=== PATIENT | male | born 1955 | race Caucasian/White ===

== ENCOUNTER 2016-08-24 06:42 | Day surgery (SDC) | payer OTHER ==
[2016-08-24 07:10] VITALS: BMI 30.4
[2016-08-24 07:32] VITALS: RESP 16; TEMP 97.8
[2016-08-24] MEDS ORDERED: Propofol 10 mg/ml Inj (20 ML) ONE ×2 (08:00→08:41)
--- NOTE | 2016-08-24 08:15 | CP.SDSHP ---
Same Day Surgery H & P - History Proposed Procedure: colonoscopy Pre-Op Diagnosis: fecal occult blood loss - Previous Medical/Surgical History Cardiac: Other (hyperlipidemia) Endocrine/Metabolic: Diabetes, Obesity - Allergies Allergies: Allergies No Known Allergies Allergy (Verified 08/24/16 07:09) - Physical Exam Vital Signs: Vital Signs 08/24/16 07:17 Temperature 97.8 F Pulse Rate 80 Respiratory 16 Rate Blood Pressure 128/62 O2 Sat by Pulse 97 Oximetry Mental Status: Alert & Oriented x3 Neuro: WNL Heart: WNL Lungs: WNL GI: WNL - Impression Impression: fecal occult blood loss Pt. Evaluated Today:Candidate for Anesthesia & Procedure: Yes - Date & Time Date: 08/24/16 Time: 08:15 Short Stay Discharge - Short Stay Discharge Admitting Diagnosis/Reason for Visit: CHANGE IN BOWEL HABIT, CONSTIPATION Disposition: HOME/ ROUTINE
[2016-08-24 08:19] VITALS: O2SAT 100
[2016-08-24 09:56] VITALS: BP 116/69; PULSE 69
== END 2016-08-24 09:40 | disposition home or self-care (01) ==
LOC: C.ENDO 06:42
PROVIDERS: ATTEND Internal Medicine Gastroenterology
DX: D12.4 Benign neoplasm of descending colon (principal); D12.7 Benign neoplasm of rectosigmoid junction; D12.3 Benign neoplasm of transverse colon; K64.1 Second degree hemorrhoids; K57.30 Diverticulosis of large intestine without perforation or abscess without bleeding
CPT/HCPCS: 45385; 88305; J2704

== ENCOUNTER 2016-12-01 07:05 | Day surgery (SDC) | payer OTHER ==
[2016-12-01] MEDS ORDERED: Propofol 10 mg/ml Inj (20 ML) ONE ×2 (09:21→09:30)
--- NOTE | 2016-12-01 09:28 | CP.SDSHP ---
Same Day Surgery H & P - History Proposed Procedure: colonoscopy and polypectomies Pre-Op Diagnosis: Multiple colon adenomas (09/04) - Previous Medical/Surgical History Cardiac: Other (hyperlipidemia, ) Endocrine/Metabolic: Diabetes, Obesity Misc: Other (diverticulosis, multiple colon adenomas) - Allergies Allergies: Allergies No Known Allergies Allergy (Verified 08/24/16 07:09) - Physical Exam Vital Signs: Vital Signs 12/01/16 12/01/16 07:39 07:59 Temperature 97.1 F L 97.1 F L Pulse Rate 83 83 Respiratory 14 14 Rate Blood Pressure 118/66 118/66 O2 Sat by Pulse 96 96 Oximetry Mental Status: Alert & Oriented x3 Neuro: WNL Heart: WNL Lungs: WNL GI: WNL - Impression Impression: multiple colon adenomas Pt. Evaluated Today:Candidate for Anesthesia & Procedure: Yes - Date & Time Date: 12/01/16 Time: 09:27 Short Stay Discharge - Short Stay Discharge Admitting Diagnosis/Reason for Visit: POLYPS OF COLON, BENIGN WILLIAM FIR, HISTORY OF COLON Disposition: HOME/ ROUTINE
[2016-12-01] MEDS ORDERED: Lactated Ringer's 500 ML IV ONE (09:29)
[2016-12-01] MEDS ORDERED: Simethicone 40 mg/0.6 ml Liquid (30 ml) ONE (09:38)
[2016-12-01 10:04] VITALS: TEMP 98
[2016-12-01 11:58] VITALS: O2SAT 98
[2016-12-01 12:23] VITALS: BP 117/63; PULSE 66; RESP 18
== END 2016-12-01 11:10 | disposition home or self-care (01) ==
LOC: C.ENDO 07:05
PROVIDERS: ATTEND Internal Medicine Gastroenterology
DX: D12.4 Benign neoplasm of descending colon (principal); D12.3 Benign neoplasm of transverse colon; K57.30 Diverticulosis of large intestine without perforation or abscess without bleeding; K64.8 Other hemorrhoids
CPT/HCPCS: 45388; 88305; J2704; J7120

== ENCOUNTER 2017-12-14 07:05 | Day surgery (SDC) | payer OTHER ==
[2017-12-13 12:59] VITALS: BMI 32.9
--- NOTE | 2017-12-14 09:32 | CP.SDSHP ---
Same Day Surgery H & P - History Proposed Procedure: colonoscopy Pre-Op Diagnosis: h/o multiple colonic polyps (>5) 2017 - Previous Medical/Surgical History Cardiac: Other (hyperlipidemia) Endocrine/Metabolic: Diabetes, Obesity Misc: Other (colon polyps, diverticulosis) - Allergies Allergies: Allergies No Known Allergies Allergy (Verified 12/13/17 12:59) - Physical Exam Vital Signs: Vital Signs 12/14/17 07:28 Temperature 97.6 F Pulse Rate 76 Respiratory 19 Rate Blood Pressure 129/67 O2 Sat by Pulse 98 Oximetry Mental Status: Alert & Oriented x3 Neuro: WNL Heart: WNL Lungs: WNL GI: WNL - Impression Impression: h/o multiple colon polyps Pt. Evaluated Today:Candidate for Anesthesia & Procedure: Yes - Date & Time Date: 12/14/17 Time: 09:31 Short Stay Discharge - Short Stay Discharge Admitting Diagnosis/Reason for Visit: DIVERTICULITIS / COLON POLYP Disposition: HOME/ ROUTINE
[2017-12-14] MEDS ORDERED: Midazolam 2 MG/2 ML VIAL ONE (09:33)
[2017-12-14] MEDS ORDERED: Lidocaine Hydrochloride 5 ML INJ ONE (09:33)
[2017-12-14] MEDS ORDERED: Propofol 10 mg/ml Inj (20 ML) ONE (09:33)
[2017-12-14 10:08] VITALS: TEMP 96.7
[2017-12-14 10:57] VITALS: BP 114/63; PULSE 70; RESP 14; O2SAT 97
== END 2017-12-14 11:25 | disposition home or self-care (01) ==
LOC: C.ENDO 07:05
PROVIDERS: ATTEND Internal Medicine Gastroenterology
DX: K57.30 Diverticulosis of large intestine without perforation or abscess without bleeding (principal); K64.1 Second degree hemorrhoids; Z86.010 Personal history of colon polyps; E11.9 Type 2 diabetes mellitus without complications; E78.5 Hyperlipidemia, unspecified; E66.9 Obesity, unspecified
CPT/HCPCS: 45378; 82948; J2250; J2704